=== PATIENT | female | born 1960 | race Caucasian/White ===

== ENCOUNTER 2017-02-22 11:49 | Emergency (ER) | payer OTHER ==
[2017-02-22 12:45] LABS: BILIRUBIN NEGATIVE (NEGATIVE); BLOOD NEGATIVE Ery/uL (NEGATIVE); CLARITY CLEAR (CLEAR); COLOR YELLOW (YELLOW); GLUCOSE (U) NORMAL (NORMAL); KETONE (U) NEGATIVE (NEGATIVE); LEUKOCYTES 2+ Leu/uL (NEGATIVE); NITRITE NEGATIVE (NEGATIVE); PROTEIN NEGATIVE (NEGATIVE); SPECIFIC GRAVITY 1.015 (1.001-1.030); UROBILINOGEN 0.2 mg/dL (0.2-1.0); pH 7.5 (5.0-9.0)
[2017-02-22 12:47] LABS: BACTERIA TRACE; SQUAMOUS EPITHELIAL CELLS RARE; URINARY RBC RARE
[2017-02-22 12:53] LABS: BASOPHIL 0.3 % (0-2); EOSINOPHIL 1.4 % (0-5); HGB 11.8 g/dl (12.5-16.0); LYMPHOCYTE 29.5 % (15-48); MCH 26.2 pg (25.0-31.0); MCHC 32.8 g/dL (32.0-36.0); MCV 79.8 fL (78.0-100.0); MONOCYTE 10.4 % (0-12); NEUTROPHIL 58.4 % (41-80); PLT 151 K/uL (150-400); RBC 4.51 M/uL (4.20-5.40); RDW 14.2 % (11.5-14.0); WBC 3.7 K/uL (4.0-10.5)
[2017-02-22 13:14] LABS: ALBUMIN 4.5 g/dL (3.5-5.0); BILIRUBIN - TOTAL 0.3 mg/dL (0.1-1.0); CREATININE 1.1 mg/dL (0.5-1.0); GLOBULIN (CALCULATION) 2.6 g/dL (2.2-4.2); POTASSIUM 4.3 mmol/L (3.5-5.1); TOTAL PROTEIN 7.1 g/dL (6.4-8.3)
== END 2017-02-22 15:09 | disposition home or self-care (01) ==
LOC: FER 11:49
PROVIDERS: Emergency Medicine
DX: R10.84 Generalized abdominal pain (principal); R19.7 Diarrhea, unspecified; R11.0 Nausea; M54.9 Dorsalgia, unspecified; Z87.19 Personal history of other diseases of the digestive system; Z88.2 Allergy status to sulfonamides; Z88.8 Allergy status to other drugs, medicaments and biological substances
CPT/HCPCS: 36415; 80053; 81001; 82150; 83690; 85025; 87076; 87088; 87186; J1885; J2765

== ENCOUNTER 2020-10-23 08:23 | Emergency (ER) | payer OTHER ==
[2020-10-23 10:02] LABS: BASOPHIL 0 % (0-2); EOSINOPHIL 0 % (0-5); HGB 10.8 g/dl (12.5-16.0); LYMPHOCYTE 32.7 % (15-48); MCH 26.9 pg (25.0-31.0); MCHC 31.8 g/dL (32.0-36.0); MCV 84.6 fL (78.0-100.0); MONOCYTE 9.5 % (0-12); MPV 12.2 fL (6.0-9.5); NEUTROPHIL 57.8 % (41-80); NRBC 0; PLT 69 K/uL (150-400); RBC 4.02 M/uL (4.20-5.40); RDW 13.3 % (11.5-14.0)
[2020-10-23 10:09] LABS: BUN/CREAT RATIO (CALC) 6.8 RATIO; CREATININE 0.88 mg/dL (0.51-0.95); POTASSIUM 3.5 mmol/L (3.5-5.1)
[2020-10-23 10:19] LABS: WBC 1.5 K/uL (4.0-10.5)
[2020-10-23] MEDS ORDERED: MEDROL 4MG DOSEP4 MG PO (11:12)
== END 2020-10-23 14:03 | disposition home or self-care (01) ==
LOC: FER 08:23
PROVIDERS: Emergency Medicine
DX: U07.1 COVID-19 (principal); J12.82 Pneumonia due to coronavirus disease 2019; E11.9 Type 2 diabetes mellitus without complications; I10 Essential (primary) hypertension; Z88.2 Allergy status to sulfonamides; Z88.8 Allergy status to other drugs, medicaments and biological substances
CPT/HCPCS: 36415; 71045; 80048; 85025; J7050; M0239